=== PATIENT | female | born 1945 | race Caucasian/White ===

== ENCOUNTER 2019-01-05 07:40 | Day surgery (SDC) | payer MEDICARE, BC ==
[~2019-01-05 07:40] MED LIST: Buffered Lidocaine 1% SYRIN* 1 ML/SYRINGE INTRADERM ONE; Lactated Ringers 1000 ML Bag* 1,000 ML IV SCH; Propofol* 10 MG/ML 20 ML BTL ONE
[2019-01-05] MEDS ORDERED: DiMENhydriNATE IV* 50 MG/ML VIAL IV PUSH PRN (08:04)
[2019-01-05] MEDS ORDERED: fentaNYL* 50 MCG/ML 2 ML VIAL (100 MCG VIAL) IV PRN (08:04)
[2019-01-05] MEDS ORDERED: Naloxone* 0.4 MG/ML 1 ML VIAL IV PRN (08:04)
[2019-01-05] MEDS ORDERED: Famotidine IV* 10 MG/ML 2 ML (20 mg) IV SLOW PU ONE (08:14)
[2019-01-05] MEDS ORDERED: Dexamethasone IV* 4 MG/ML 1 ML (4 MG) IV SLOW PU ONE (08:15)
[2019-01-05] MEDS ORDERED: Famotidine IV* 10 MG/ML 2 ML (20 mg) ONE (08:16)
[2019-01-05] MEDS ORDERED: Dexamethasone IV* 4 MG/ML 1 ML (4 MG) ONE (08:16)
[2019-01-05] MEDS ORDERED: ceFAZolin 2 GM PREMIX in ORs 2 GM/50 ML BAG ONE (08:17)
[2019-01-05] MEDS ORDERED: Midazolam* 1 MG/ML 2 ML VIAL (2 MG) ONE (08:18)
[2019-01-05] MEDS ORDERED: fentaNYL* 50 MCG/ML 2 ML VIAL (100 MCG VIAL) ONE ×2 (08:18→10:58)
[2019-01-05] MEDS ORDERED: Bupivacaine 0.25% SDV* 30 ML ONE (08:22)
[2019-01-05] MEDS ORDERED: EPHEDrine (Pressors)* 50 MG/ML VIAL ONE (09:04)
[2019-01-05] MEDS ORDERED: Ondansetron INJ* 2 MG/ML VIAL ONE (09:04)
[2019-01-05] MEDS ORDERED: Ketorolac INJ* 30 MG/ML 1 ML VIAL ONE (09:04)
[2019-01-05] MEDS ORDERED: traMADol TAB* 50 MG ONE (11:54)
[2019-01-05 12:02] VITALS: BP 121/54
--- NOTE | 2019-01-05 17:31 | OP ---
DATE OF OPERATION: 01/05/19 - [facility] DATE OF : 45 SURGEON: Khanh Jerez MD STAFFING EXECUTIVE: MERRITT Mcnally. An nursing assistant was needed for the entirety of the procedure to aid in positioning of the arm and retraction. ANESTHESIOLOGIST: Dr. Rosario. ANESTHESIA: General. PRE-OP DIAGNOSIS: Increased pain and profound progressive weakness in the thenar muscle status post prior right carpal tunnel release surgery in August of this year. POST-OP DIAGNOSIS: Increased pain and profound progressive weakness in the thenar muscle status post prior right carpal tunnel release surgery in August of this year. OPERATIVE PROCEDURE: 1. Right revision carpal tunnel release. 2. Exploration and repair of the motor branch of the right median nerve with AxoGuard nerve connector. 3. Right median nerve nerve wrapping. 4. Right wrist hypothenar fat flap local rotational transfer. INDICATIONS: Rachel is 73 years old. She has the aforementioned condition really since the carpal tunnel release in August. She has had a lot of pain ever since day 1 after the procedure, it has increased. Additionally, she has noted profound atrophy that is developing in the thenar musculature as well as some weakness in the thumb. I had talked to her about her options. I told her that it was probably best to explore the carpal tunnel and do a revision release to see if there is a tight band of tissue that was causing a band-like compression over the median nerve or see if there is any injury to the nerve. Additionally , I told her that I would probably do a hypothenar fat pad transfer as well as wrap the nerve. She understood all that, she understands the results of revision surgery can be unpredictable. She wishes to proceed. ESTIMATED BLOOD LOSS: 2 mL. COMPLICATIONS: None. FINDINGS: It looked like there was just near about a centimeter distal to the wrist flexion crease, there was an injury to a fascicle of the median nerve. There was a neuroma that was developing, that scar tissue was very adherent to the under-surface of the transverse carpal ligament, took quite some time to separate the ligament from the nerve. Upon dissection through that neuroma tissue, I was able to identify a lacerated fascicle. DESCRIPTION OF PROCEDURE: Ms. Todd was seen in the preoperative holding area. The correct side, site, and procedures were identified. We came back to the operating room, the arm was prepped and draped in the usual fashion, and a time- out was performed. The arm was exsanguinated and the tourniquet was inflated. I went ahead and made a longitudinal incision in the proximal palm. This was brought back across the wrist in Ann type fashion and extended up along the ulnar aspect of the palmaris longus tendon. Dissection was carried down through the scar tissue and subcutaneous tissue. Great care was taken not to injury the ulnar neurovascular bundle. I ended up getting down to the area where the transverse carpal ligament had been released. I went ahead and re-released the transverse carpal ligament, coming all the way distal to the mid palm and then bringing it proximal up through the carpal tunnel area and up through the distal antebrachial fascia. I released more of the distal antebrachial fascia than had been released previously. After releasing that, I lifted up on the edge of the transverse carpal ligament. The median nerve came free from the undersurface of the ligament distally and proximally; however, over about a 1.5 cm segment starting just about at the wrist flexion crease coming a little bit distal, the nerve was very adherent to the undersurface of the transverse carpal ligament. I went ahead and very carefully bluntly it from the undersurface of the ligament that took quite some time. Great care was taken not to injure the nerve. Once I had it released, I was able to perform a full neurolysis, releasing quite a bit of inflammatory and scar tissue from around the nerve. Proximally, the nerve looked pretty good. Distally, the nerve looked good. I was able to trace out what looked like the motor branch distally curving back towards the thenar musculature. As I came proximal, I got to that area where it was very scarred. I went ahead and I saw a fascicle that looked like it had been injured. I went ahead and traced it back with that fascicle distally with the micro scissors. I came to the point where the injured fascicle was indeed released. I then came proximal and I dissected down again from healthy into the distal tissue and the other end of the fascicle was identified and released. There was a little bit of more scar tissue deep to that, but preoperatively it really seemed like it was just a motor branch that was affected. I did not want to create any nerve injury and so I did not go down deep into that. Most of the scar tissue has gone, but there is a little bit that remained. At this point, everything was actually looking pretty good other than the one injured fascicle. The remainder of the nerve looked reasonable. I went ahead and placed a sterile tongue depressor underneath the 2 ends of the nerve. I took about 2 or 3 mm of nerve off each end of the nerve with 11 blade, taking care not to injure the median nerve under that. The background was then placed. I then brought in a 2 mm AxoGuard nerve connector. First, I sewed the proximal end with a mattress suture into the nerve docking about 4 mm nerve into the connector. I trimmed about 4 to 5 mm of the connector. That was done with a 9-0 Prolene suture to a mattress suture and docked the other end of the nerve. Ultimately, I was left with about a 3 mm gap. The connector was just a little loose proximally and so I placed 1 stitch just to close it down in the loose end of the connector, so I had a nice snug fit around the nerve. I did that with just 1 simple Prolene suture, sewing one edge of the connector to the other edge of the connector without grabbing the nerve. At this point, I was very pleased with the nerve repair, I thought it looked very nice and just a small gap between the 2 ends of the nerve. I made sure my neurolysis was good. I took a 7 x 40 mm AxoGuard nerve protector and wrapped that around the nerve that was secured with 4 or 5 simple 6-0 Prolene sutures sewing just that edge of the connector together, but not sewing the connector to the nerve. At this point, everything was looking good about the nerve repair and the wrap looked good. I did want to put some padding between that injured portion of the nerve and the skin, and so I went ahead and released very carefully the hypothenar fat pad, taking great care not to injure the ulnar neurovascular bundle or the perforating vessels. I went ahead and released it from the skin superficially and ulnarly. I went ahead and released a little bit proximal. I was then able to advance it and rotate it down to get very next coverage over the carpal tunnel of about 2 cm. I used a 4-0 Vicryl to sew the hypothenar fat flap to the undersurface of the transverse carpal ligament, this was done with I think 4 simple interrupted sutures. This provided excellent coverage over that portion of the nerve. At this point, everything I thought looked pretty good. I went ahead and closed the skin with 4-0 nylon suture. The wound was dressed with Xeroform, 4x4 , sterile Webril. Very carefully, a cockup plaster wrist splint was applied with the wrist in neutral flexion, took great care not to extend the wrist during splint placement so as to not to potentially damage our nerve repair. Tourniquet was deflated and the hand pinked up immediately. She was taken to the recovery room in stable condition. [id number]/CPS #: [id number] [place]
== END 2019-01-05 12:20 | disposition home or self-care (01) ==
LOC: OREAST 07:40
PROVIDERS: ATTEND Orthopaedic Surgery Hand Surgery
DX: G56.01 Carpal tunnel syndrome, right upper limb (principal); S64.11XA Injury of median nerve at wrist and hand level of right arm, initial encounter; X58.XXXA Exposure to other specified factors, initial encounter; Y92.9 Unspecified place or not applicable; E11.9 Type 2 diabetes mellitus without complications; Z79.84 Long term (current) use of oral hypoglycemic drugs; E78.5 Hyperlipidemia, unspecified; I10 Essential (primary) hypertension; F41.9 Anxiety disorder, unspecified; Z87.891 Personal history of nicotine dependence
CPT/HCPCS: A9270-GY; C1763; J0690; J1100; J1885; J2250; J2405; J2704; J3010; J3490